=== PATIENT | female | born 1965 | race Caucasian/White ===

== ENCOUNTER 2017-02-01 13:27 | Inpatient (IN) | payer OTHER ==
--- NOTE | ~2017-02-01 | A ---
[facility] Nutrition Therapy DATE: 02/02/17 Patient: FLORIDA NARVAEZ Physician: OSBALDO Address: [address] [place] [address] ROAD Room/Bed: [address] [place] [address], Zip: [place] [address] Admit Date: 02/01/17 Date of : [birth year] Height: 5 4 Weight: 63 29 NUTRITIONAL ASSESSMENT: REASON: Low BMI Admitting Dx: 51 y/o female admitted with AMS, possible seizure. COPD exacerbation, PNA PMH: COPD, smoker, questionable ETOH/substance abuse Anthropometrics: Ht: 64", Wt: 104 lbs, BMI: 18 (underweight) *Wt documented today of 63 lbs is incorrect! Labs: Mg 1.5 Meds: PPI, Kcl, Nacl, MgSO4, Keppra, Solu-medrol, Zofran prn I/O & Bowel function: LBM 02/01 Skin Integrity: Intact abrasion L foot, bruise x 2, no edema Assessment: Chart reviewed, events noted. See admitting dx and PMH as stated above. Tox screen + marijuana, ?ETOH/substance abuse. CT of head showed nothing acute, CXR showed community acquired pnemonia, patient is on 2L nasal cannula. RD assessing due to underweight status- past weight of 115 lbs on 04/24/15 reflects a possible gradual weight loss of 11 lbs in almost 2 years (9.6% loss; mild), if weights are accurate. The patient passed a bedside swallow for a regular diet, however she is not appropriate for RD interview at this time as she has been cursing at staff and refusing care, is on a [address] RD recs, will follow hospital course and interview to obtain weight and diet hx if she becomes appropriate. Dx: Underweight r/t unknown etiology AEB BMI 18, 87% IBW. Intervention: Ensure BID if PO is < 50% Monitoring, Evaluation and Goals: 1. PO intake > 50% of meals. 2. Gradual weight gain towards a healthy BMI range. Monitor: Per protocol, criteria to determine if above goals met Recommendations: 1. Continue regular diet, encourage frequent meals/snacks. [facility] Nutrition Therapy DATE: 02/02/17 Patient: FLORIDA NARVAEZ Physician: OSBALDO Address: [address] [place] [address] ROAD Room/Bed: [address] [place] [address], Zip: [place] [address] Admit Date: 02/01/17 Date of : [birth year] Height: 5 4 Weight: 63 29 2. If PO intake is < 50% of meals please order Ensure Enlive BID, if patient will comply. 3. Please weigh q 3 days for monitoring purposes, as the patient is clinically underweight. RD will follow Mild-moderate nutrition risk Respectfully, Elsa Childress RD, LD Food and Nutritional Services [facility] cc: client file
--- NOTE | ~2017-02-01 | CT71 ---
[facility] A Service of [facility] & [facility] RADIOLOGY TEXT RESULTS PATIENT: FLORIDA NARVAEZ LOCATION: [facility] 555-01 : [birth year] UNIT #: [id number] AGE: [address]: Dev Roman MD SEX: F ORDER DR: [id number] [facility] [address] [place], [place] [address] [id number] E MR#: [id number] Acc #: [id number] NAME: FLORIDA NARVAEZ : 1965 SEX: F STUDY DATE/TIME: 02/01/2017 12:01 UNIT: [facility] ROOM: STUDY DESCRIPTION: CT Head Wo Contrast Attending Physician: Narciso Negron D.O. Referring Physician: Primary Care Physician No Ordering Physician: Narciso Negron D.O. Primary Care Physician: Primary Care Physician No MEDICAL IMAGING REPORT This report is preliminary unless electronic signature is present EXAM CT head, 02/01/2017 HISTORY Confused today. Patient states jerking in body today. History of asthma and COPD. Jerking in body today. TECHNIQUE This CT exam was performed with one or more of the following radiation dose reduction techniques: automatic exposure control, adjustment of mA and/or kV according to patient size, and iterative reconstruction. FINDINGS CT head performed skull base through vertex without intravenous contrast. Comparison 07/13/2016. Study degraded by streak/motion artifact. Brainstem unremarkable. Cerebellum and cerebral hemispheres show normal whaley matter-white matter differentiation. No hemorrhage. No evidence of acute cortical ischemia. The midline structures are nondisplaced and the basal ganglia are intact. The ventricles, cisterns and sulci are normal in size and contour. No intra or extraaxial mass effect or abnormal intracranial fluid collection. The intraorbital soft tissues are remarkable. Mucosal thickening in the ethmoid air cells and bilateral maxillary sinuses significantly less pronounced than on the prior study. No fracture. IMPRESSION 1. Motion degraded study. If patient has ongoing neurologic symptoms, consider followup examination. 2. No acute abnormality is seen in the brain. 3. Mucosal thickening in ethmoid air cells and maxillary sinuses. Significantly less pronounced than on prior examination. [facility] A Service of [facility] & [facility] RADIOLOGY TEXT RESULTS PATIENT: FLORIDA NARVAEZ LOCATION: [facility] 555-01 : [birth year] UNIT #: [id number] AGE: [address]: Dev Roman MD SEX: F ORDER DR: Dictated by... Vinnie Ontiveros M.D. THIS IS AN ELECTRONICALLY VERIFIED REPORT Vinnie Ontiveros M.D. at 02/02/2017 6:04 PM Alan TD: 02/01/2017 14:47 JOB #: [id number] MEDICAL IMAGING REPORT Page 1 of 1 COPY
--- NOTE | ~2017-02-01 | DS ---
Unit #: [id number] #: [id number] Patient: FLORIDA NARVAEZ [id number] [address] [address] [id number] I MR#: [id number] NAME: FLORIDA NARVAEZ ROOM: 555 Age: 51 Sex: F Admission Date: 02/01/2017 : 1965 Discharge Date: 02/02/2017 Attending Physician: Dev Roman M.D. Referring Physician: Primary Care Physician No Primary Care Physician: Primary Care Physician No DISCHARGE SUMMARY DISCHARGE DIAGNOSES 1. Drug-induced encephalopathy. 2. Chronic obstructive pulmonary disease exacerbation. 3. Possible pneumonia. 4. Drug abuse. 5. Seizure. HOSPITAL COURSE The patient is a 51-year-old female who was being brought to EMS after she was noted to be altered. Apparently, the EMS was called by the boyfriend. There was some question of a witnessed seizure. The patient received Keppra, Vimpat,and Ativan for her seizure. No further seizure activity was noted. She did, however, become extremely agitated on the night prior to discharge and was ultimately treated with Geodon and restraints. On the day of discharge, the patient was much calmer. Her restraints were canceled. The patient was evaluated by Psychiatry and it was felt that 72-hour hold was not needed (72-hour hold had been started the night prior when the patient was agitated). As a result, a 72-hour hold was canceled and the patient then did request discharge. Having been deemed not a threat to herself or others and given her request to no longer have treatment and be discharged, the patient was indeed discharged home. She was just interested in receiving treatment for any maladies. This includes seizure medication and treatment for pneumonia and COPD. It is felt however that ongoing treatment for seizures was not needed and the seizure was likely caused by some drug of abuse that is undetectable on urine drug screen. DISCHARGE MEDICATIONS Ventolin which is her only home medication. FOLLOWUP The patient should follow up with her primary care provider at the earliest available appointment. Dictated by... Dev Roman M.D. CAM/modl Unit #: [id number] #: [id number] Patient: FLORIDA NARVAEZ TD: 02/07/2017 02:14 JOB #: [id number] DISCHARGE SUMMARY Page 1 of 1 X Dev Roman MD DISCHARGE SUMMARY
--- NOTE | ~2017-02-01 | HP ---
Unit #: [id number] #: [id number] Patient: FLORIDA NARVAEZ [id number] [facility] [address] [place], [place] [address] [id number] E MR#: [id number] NAME: FLORIDA NARVAEZ ROOM: Age: 51 Sex: F Admission Date: 02/01/2017 : 1965 Attending Physician: Narciso Negron D.O. Referring Physician: No Primary Care Physician Primary Care Physician: No Primary Care Physician HISTORY AND PHYSICAL CHIEF COMPLAINT Altered mental status. HISTORY OF PRESENT ILLNESS The patient is a 51-year-old female with a past medical history of chronic obstructive pulmonary disease. She presented to the emergency department via EMS for evaluation of the above. History is obtained from chart review and discussion with the emergency room staff due to the patient being unable to provide history. It is unclear when the patient was last normal. As stated above, EMS was called for altered mental status. During the course of her evaluation there was a boyfriend who apparently was at the bedside, who stated that the patient walked into the bathroom this morning and fell. She appeared to have seizure-like activity with "eyes rolled back and shaking all over." She has apparently never had seizures nor taken any antiepileptic medications in the past. The significant other stated that she was previously taking unprescribed "pain medication," but stopped taking that about a month ago. The pharmacy was apparently called. The patient is not currently receiving any narcotics or benzodiazepines. In the emergency department the patient's pulse and blood pressure were 97 and 130/89 respectively. Oxygen saturation 93% on room air. She was noted to be having some "twitching." A CT of the head was done and showed nothing acute. She was given a gram of Keppra as well as 100 mg of Vimpat. She also prior to that received 1 mg of Ativan. She is no longer twitching. Also of note, chest x-ray showed bibasilar infiltrate. She was given Rocephin and azithromycin in the emergency department. She is being admitted to [facility] for evaluation and further treatment. Also of note, the patient's tox screen was positive for marijuana. PAST MEDICAL HISTORY Chronic obstructive pulmonary disease. PAST SURGICAL HISTORY 1. Hysterectomy. 2. Tonsillectomy. SOCIAL HISTORY The patient is a smoker. She has a history of taking "pain medication that is now prescribed," per the patient's significant other. FAMILY HISTORY Unit #: [id number] #: [id number] Patient: FLORIDA NARVAEZ Currently unobtainable. ALLERGIES No known drug allergies. HOME MEDICATIONS Ventolin inhaled daily. REVIEW OF SYSTEMS A complete review of systems is unobtainable due to the patient's current altered mental status. Apparently prior to Ativan, Keppra and Vimpat, the patient was alert and oriented times three. PHYSICAL EXAMINATION GENERAL: The patient is a female who is lethargic, but opens eyes to sternal rub. VITALS: Temperature 97.8, pulse 97, respiratory rate 35, blood pressure 130/89, oxygen saturation 93% on room air. HEENT: The head is atraumatic. Mucous membranes are moist. NECK: Supple. Trachea midline. LUNGS: Few scattered wheezes and rhonchi. Breathing is not labored. HEART: Regular rate and rhythm. ABDOMEN: Soft and nontender with bowel sounds present in all four quadrants. EXTREMITIES: Nontender with no pedal edema. NEUROLOGIC: The patient is lethargic, but awakens to sternal rub. She is moving all extremities. She was apparently alert and oriented times three prior to receiving Ativan, Keppra and Vimpat. PSYCHIATRIC: Unable to assess. SKIN: Skin of examined areas is warm and dry. DIAGNOSTIC STUDIES IMAGING: Chest x-ray shows patchy bibasilar infiltrates. CT of the head shows nothing acute. LABORATORY: Troponin less than 0.05. Complete blood count is notable for platelets of 102. Rapid flu screen is negative. INR is 1.1. Ammonia level is 14. CMP is notable for potassium 2.8, glucose 155, albumin 3.4, Tylenol, salicylate and alcohol levels are negative. Lactic acid is 2.3. BNP is 32. Urine tox screen positive for marijuana. Urinalysis notable for 1+ protein. CARDIOVASCULAR: EKG shows normal sinus rhythm with a rate of 96 beats per minute. ASSESSMENT The patient is a 51-year-old female with 1. Altered mental status. 2. Possible seizure. The patient received Keppra and Vimpat in the emergency department. 3. Pneumonia, community acquired. The patient received Rocephin and azithromycin in the emergency department. 4. Sepsis with initial lactic acid of 2.3. 5. Hypokalemia. The patient received 40 mEq of potassium in the emergency department. 6. Chronic obstructive pulmonary disease exacerbation. The patient received 125 mg of Solu-Medrol in the emergency department. Unit #: [id number] #: [id number] Patient: FLORIDA NARVAEZ 7. Thrombocytopenia. The patient's platelet count is 102, with no baseline for comparison. 8. Tobacco abuse. PLAN 1. Admit to intermediate level. 2. N.p.o. until awake and passes bedside swallow. 3. Normal saline at 125 mL an hour. 4. Bedrest. 5. Seizure precautions. 6. TSH, B12 and folate. 7. Neurologic checks. 8. Keppra 1 g IV q.12 h. 9. Vimpat 100 mg IV q.12 h. 10. MRI of the brain, seizure protocol. 11. EEG. 12. Consult Dr. Chapman regarding possible seizure. 13. Blood cultures. 14. Sputum culture and sensitivity. 15. Procalcitonin level. 16. Supplemental oxygen. 17. Rocephin and azithromycin for community acquired pneumonia pending further workup. 18. Duo-Nebs q.4 h. 19. Solu-Medrol 80 mg IV q.12 h. 20. Sepsis protocol with repeat lactic acid. 21. Serial cardiac enzymes. 22. Check magnesium level. 23. Potassium/magnesium protocol. 24. Repeat labs in the morning. 25. SCDs for DVT prophylaxis. 26. Protonix for GI prophylaxis since the patient will be on Solu-Medrol. 27. Additional workup and consultants based on the above. Dictated by Bipin Toledo TD: 02/01/2017 14:49 JOB #: [id number] HISTORY AND PHYSICAL Page 1 of 1 X Alanna Johnson MD X HISTORY AND PHYSICAL
--- NOTE | ~2017-02-01 | CR72 ---
[facility] A Service of [facility] & [facility] RADIOLOGY TEXT RESULTS PATIENT: FLORIDA NARVAEZ LOCATION: [facility] : [birth year] UNIT #: [id number] AGE: [address]: Narciso Negron DO SEX: F ORDER DR: [id number] [facility] [address] [place], [place] [address] [id number] E MR#: [id number] #: [id number] NAME: FLORIDA NARVAEZ : 1965 SEX: F STUDY DATE/TIME: 02/01/2017 11:24 UNIT: [facility] ROOM: STUDY DESCRIPTION: CR Chest Single View Portable Attending Physician: Narciso Negron D.O. Referring Physician: Primary Care Physician No Ordering Physician: Narciso Negron D.O. Primary Care Physician: Primary Care Physician No MEDICAL IMAGING REPORT This report is preliminary unless electronic signature is present EXAM Portable chest radiograph INDICATION Shortness of breath and cough. This has been present for 2 days. COMPARISON January 14, 2017 FINDINGS The heart size is within normal limits. Patient does appear to have patchy bibasilar infiltrates and potentially also some milder infiltrates within the upper lobes bilaterally. This certainly could reflect multifocal pneumonia. Short-term followup examination to document resolution is recommended. No pneumothorax or pleural effusion. Dictated by... Erin Natarajan M.D. THIS IS AN ELECTRONICALLY VERIFIED REPORT Erin Natarajan M.D. at 02/01/2017 4:45 PM AFF/jw TD: 02/01/2017 14:41 JOB #: [id number] MEDICAL IMAGING REPORT Page 1 of 1 COPY
--- NOTE | ~2017-02-01 | EKG ---
PATIENT: FLORIDA NARVAEZ UNIT #: [id number] Ventricular Rate: 96 BPM Atrial Rate: 96 BPM P-R Interval: 132 ms QRS Duration: 84 ms Q-T Interval: 372 ms QTC Calculation(Bezet): 469 ms P Duff: 74 degrees Calculated R Duff: 74 degrees Calculated T Duff: 40 degrees Diagnosis Line: Normal sinus rhythm Diagnosis Line: Nonspecific T wave abnormality Diagnosis Line: Prolonged QT Baseline wander Diagnosis Line: Abnormal ECG Diagnosis Line: No previous ECGs available Diagnosis Line: Confirmed by LARY BROOKS MD ([id number]) on 02/01/2017 Diagnosis Line: 11:05:39 PM INTERPRETING MD: TODD ORR
--- NOTE | ~2017-02-01 | CO ---
Unit #: [id number] #: [id number] Patient: FLORIDA NARVAEZ [id number] [facility] [address] [place], [place] [address] [id number] I MR#: [id number] NAME: FLORIDA NARVAEZ ROOM: 555 Age: 51 Sex: F Admission Date: 02/01/2017 : 1965 Attending Physician: Dev Roman M.D. Primary Care Physician: Primary Care Physician No Consultation Date: 02/02/2017 CONSULTATION REPORT REASON FOR CONSULTATION Mental status changes. PATIENT IDENTIFICATION This is a 51-year-old white female, who was evaluated in room 555 at [facility]. SOURCE OF INFORMATION Essentially the medical records. The patient is now on four point restraints. She does not want to communicate, talk, or interact in anyway. PROBLEM LIST Essentially, a COPD and she has had hysterectomy and tonsillectomy. ADMISSION DIAGNOSES 1. Altered mental status. 2. Possible seizure. 3. Possible pneumonia. 4. Possibility of sepsis. 5. Hypokalemia. 6. Chronic obstructive pulmonary disease and she has been on steroid. 7. Thrombocytopenia. 8. Tobacco abuse. HISTORY OF PRESENT ILLNESS This is a 51-year-old female, who is actually brought in yesterday. She was brought in with altered mental status. Apparently is unclear when she was last normal. EMS was called for altered mental status. During the course of her evaluation, it was reported that the patient went to the bathroom and fell. There appeared to be seizure-like activity, shaking all over. She never had history of seizures. She has been confused last night. She got more agitated, had to be on four-point restraints. No seizures have been reported since then. When I came to see her and I tried to talk with her, she would not talk to me and whenever I try to stimulate her again and again by asking questions, she told me to leave her alone. She was very focused and she is moving all extremities despite being in restraints. I did not see any facial asymmetry. I do not see any twitching or any other activity. Yesterday, there was concern about some myoclonic type activity and really the labs did not show anything. She had marijuana positive otherwise no other abnormalities. No significant white count. No fever. Her platelets were Unit #: [id number] #: [id number] Patient: FLORIDA NARVAEZ. Urinalysis showed nothing major. There was some protein, but nothing major. CT head was okay. EEG has not been done. So the concern is that, was this some sort of withdrawal or sepsis or intoxication. She does not look like meningitis type picture. She does not have significant white count, otherwise neck stiffness and other possibility is some sort of substance that she may have taken or is withdrawing from which is correctly obviously not seen on the drug screen. She looks like otherwise nonfocal, but cognitive evaluation is very difficult. EEG is pending. She is being treated with antibiotics and others. No family available to me to give further information. PAST MEDICAL HISTORY As discussed above. PAST SURGICAL HISTORY As discussed above. ALLERGIES None. HOME MEDICATIONS Apparently Ventolin. FAMILY HISTORY Details unavailable. SOCIAL HISTORY Apparently, there is a boyfriend with her. She is a smoker. She has history of taking pain medication. Boyfriend reported to the staff that they were prescribed now to her. Drug screen was negative. REVIEW OF SYSTEMS Really could not be obtained because of her present state. PHYSICAL EXAMINATION She is arousable. She is moving. She is appropriate and saying negative things. VITAL SIGNS: Temperature 98.4, pulse is 111, respirations are 22, blood pressure 155/24, O2 sats of 97% to 98%. Weight of 104 pounds. BMI was 18. NEUROLOGIC: The patient is in four point restraints, very belligerent since last night. She is focused. She told me to leave her alone. She does not want to interact. Cranial nerve examination, she would not open her eyes for me to do field evaluation even check her pupils or do a funduscopic examination, but whenever she briefly opens her eyes, they seemed conjugate. I did not see any facial asymmetry. I could not check muscle of mastication. Hearing seemed to be intact when she responds to stimuli. Her tongue seemed to midline. I could not visualize oropharynx or uvula. Head turning was spontaneous and equal. No spasticity type activity was seen. Motor examination, she is withdrawing forcefully. She is trying to pull on the restraints. Strength is at least 4+ to 5- all over. I did not see any decreased tone or asymmetry or posturing. Unit #: [id number] #: [id number] Patient: FLORIDA NARVAEZ Sensory examination responds to soft touch and even pain and withdraws forcefully. I could not get any reflexes. Toes are mute. Gait and coordination could not be evaluated. DIAGNOSTIC STUDIES Labs and imaging studies reviewed. EEG not available. IMPRESSION This is a 51-year-old female, who was actually brought in with decreased level of consciousness and confusion. There is question about seizure. The question I have is she going through some sort of withdrawal or this is intoxication. There is nothing suggesting that she has meningitis type picture. I will discontinue Keppra since epilepsy has not been established. Wait for her EEG. Continue supportive care and see how things go. Further treatment will be based on our findings and if needed MRI, LP, and further testing would be done. At present, it does not look like she has history of epilepsy or status epilepticus. Again I cannot otherwise say what she took or did not take or is withdrawing from. Also it does not look like she has a major stroke. It does not look like she is meningitis either, but that is in the part of the differential diagnosis and I will watch her very closely. At present, it is very unlikely that she would lay still for LP and I really do not want to sedate her necessitating possibility of intubation considering that she may have pneumonia and sepsis and that may be cause for it or she may have decreased level of consciousness and aspirated. So we will follow closely with the primary team and see how things go. I will keep you informed. Call me for any other questions, issues, or concerns. Dictated by... Bipin Wyatt/edgardo TD: 02/03/2017 02:29 JOB #: [id number] CONSULTATION REPORT Page 1 of 1 X Darya Chapman MD X CONSULTATION REPORT
[2017-02-01 11:35] LABS: POC - CKMB 1.3 ng/mL (0.0-7.9); POC - TROPONIN <0.05 ng/mL (<=0.05)
[2017-02-01 11:38] LABS: BASOPHIL% 0.6 % (0-2.5); DIFF IND NO; EOSINOPHIL# 0.2 X10e3 (0-0.7); EOSINOPHIL% 2.7 % (0.0-7.0); HEMATOCRIT 42.7 % (35.0-45.0); HEMOGLOBIN 13.8 gm/dL (12.0-16.0); LYMPHOCYTE% 18.2 % (17.0-45.0); MEAN CELL VOLUME 95.9 FL (83-96); MEAN CORPUSCULAR HEMOGLOBIN 30.9 PG (28-34); MEAN CORPUSCULAR HGB CONC 32.2 g/dL (30-36); MEAN PLATELET VOLUME 8.5 FL (6.5-11.5); MONOCYTE# 0.5 X10e3 (0-1.0); NEUTROPHIL% 70.5 % (40-75); PLATELET COUNT 102 X10e3 (140-420); RED BLOOD COUNT 4.45 X10e (3.90-5.30); RED CELL DISTRIBUTION WIDTH 20.6 % (11.0-15.5); WHITE BLOOD COUNT 5.7 X10e3 (4.0-10.5)
[2017-02-01 11:47] LABS: INFLUENZA A NEG (NEG); INFLUENZA B NEG (NEG); INR 1.1; PARTIAL THROMBOPLASTIN TIME 22.9 SECONDS (23.5-31.3); PROTHROMBIN TIME (PATIENT) 11.2 SECONDS (9.6-11.5)
[2017-02-01 12:01] LABS: URINE SOURCE CLEAN CATCH
[2017-02-01 12:07] LABS: ALBUMIN SERUM 3.4 g/dL (3.5-5.0); ALKALINE PHOSPHATASE 75 U/L (32-92); ALT (SGPT) 26 U/L (10-40); AST (SGOT) 30 U/L (10-42); BILIRUBIN, DIRECT 0.1 mg/dL (0.0-0.2); BILIRUBIN,INDIRECT 0.7 mg/dL (0.0-0.9); BILIRUBIN,TOTAL 0.8 mg/dL (0.2-2.0); BLOOD UREA NITROGEN 6 mg/dL (9-23); CALCIUM SERUM 8.6 mg/dL (8.4-10.2); CARBON DIOXIDE 28 mmol/L (22-31); CHLORIDE 105 mmol/L (100-111); CREATININE SERUM 0.6 mg/dL (0.6-1.4); GLUCOSE FASTING 155 mg/dL (70-110); PROTEIN TOTAL SERUM 6.5 g/dL (6.0-8.3); SALICYLATE <4.0 mg/dL; SODIUM 142 mmol/L (135-145)
[2017-02-01 12:09] LABS: ACETAMINOPHEN <10 ug/mL; ALCOHOL BLOOD <5 mg/dL (0); POTASSIUM 2.8 mmol/L (3.5-5.1)
[2017-02-01 12:10] LABS: URBCS1 AUWI 0-2 /[HPF] (0-2); URINE APPEARANCE CLOUDY; URINE BACTERIA AUWI NEG (NEGATIVE); URINE BILIRUBIN NEG (NEG); URINE BLOOD NEG (NEG); URINE COLOR YELLOW; URINE GLUCOSE NEG (NEG); URINE KETONE NEG (NEG); URINE LEUKOCYTE ESTERASE NEG (NEG); URINE NITRATE NEG (NEG); URINE PROTEIN 1+ (NEG); URINE SPECIFIC GRAVITY 1.015 (1.003-1.035); URINE SQUAMOUS EPITHELIAL CELL OCC /[HPF]; UWBCS1 AUWI 0-2 (0-5)
[2017-02-01 12:17] LABS: AMPHETAMINE NEG (NEG); BARBITURATES NEG (NEG); BENZODIAZEPINES NEG (NEG); COCAINE NEG (NEG); MARIJUANA POS (NEG); OPIATES NEG (NEG); TRICYCLIC ANTIDEPRESSANTS NEG (NEG); U METHADONE NEG (NEG)
[2017-02-01 12:29] LABS: CULTURE INDICATED? NO
[~2017-02-01 13:27] MED LIST: ALBUTEROL17 GM INH; FLEXERIL10 MG PO; MOTRIN; TYLENOL #3 PO; VOLTAREN50 MG PO
[2017-02-01 13:38] LABS: POC - CKMB 1.3 ng/mL (0.0-7.9); POC - TROPONIN <0.05 ng/mL (<=0.05)
[2017-02-01 15:30] LABS: MAGNESIUM 1.6 mg/dL (1.6-3.0)
[2017-02-01 15:59] LABS: FOLATE (FOLIC ACID) 15.6 ng/mL (>5.8)
[2017-02-01 16:01] LABS: PROCALCITONIN <0.05 NG/ML
[2017-02-02 11:30] LABS: HEMATOCRIT 36.2 % (35.0-45.0); MEAN CELL VOLUME 96.6 FL (83-96); MEAN CORPUSCULAR HEMOGLOBIN 31.4 PG (28-34); MEAN CORPUSCULAR HGB CONC 32.5 g/dL (30-36); MEAN PLATELET VOLUME 8.4 FL (6.5-11.5); RED BLOOD COUNT 3.75 X10e (3.90-5.30); RED CELL DISTRIBUTION WIDTH 20.2 % (11.0-15.5); WHITE BLOOD COUNT 7.2 X10e3 (4.0-10.5)
[2017-02-02 12:06] LABS: ALBUMIN SERUM 2.9 g/dL (3.5-5.0); BILIRUBIN,TOTAL 0.6 mg/dL (0.2-2.0); CALCIUM SERUM 8.3 mg/dL (8.4-10.2); CREATININE SERUM 0.5 mg/dL (0.6-1.4); GLOM FILT RATE Estimated 113.7 mL/min (>60); MAGNESIUM 1.5 mg/dL (1.6-3.0); POTASSIUM 3.5 mmol/L (3.5-5.1); PROTEIN TOTAL SERUM 5.4 g/dL (6.0-8.3)
[2017-02-02 12:50] LABS: HEMOGLOBIN 11.8 gm/dL (12.0-16.0)
[2017-02-04 09:04] LABS: HA AB IGM (HEPPAN) Nonreactive (Nonreactive); HB CORE AB IGM (HEPPAN) Nonreactive (Nonreactive); HB S AG (HEPPAN) Reactive (Nonreactive); HEP C AB (HEPPAN) Nonreactive (Nonreactive); HEP C AB SIGNAL TO CUTOFF 0.13 ratio (<1.00)
== END 2017-02-02 17:19 | disposition home or self-care (01) | DRG 91 ==
LOC: CED 13:27 → C5B 14:15
PROVIDERS: Emergency Medicine; Family Medicine; Internal Medicine
DX: G92 Toxic encephalopathy (principal); J18.9 Pneumonia, unspecified organism; A41.9 Sepsis, unspecified organism; R56.9 Unspecified convulsions; D69.6 Thrombocytopenia, unspecified; J44.1 Chronic obstructive pulmonary disease with (acute) exacerbation; E87.6 Hypokalemia; F17.210 Nicotine dependence, cigarettes, uncomplicated; Z90.710 Acquired absence of both cervix and uterus; F19.10 Other psychoactive substance abuse, uncomplicated
CPT/HCPCS: 36415; 51702; 70450; 71010; 80048; 80053; 80074; 80076; 80307; 81003; 82140; 82308; 82553; 82607; 82746; 82947; 83605; 83735; 83880; 84443; 84484; 85025; 85027; 85610; 85730; 87040; 87804; 87806; 93005; 94640; 94760; 96361; 96374; 96375; 99285; C9113; C9254; G0480; J0456; J0696; J1953; J2060; J2920; J2930; J3475; J3486

== ENCOUNTER 2017-04-10 12:56 | Emergency (ER) | payer OTHER ==
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
== END 2017-04-10 17:27 | disposition home or self-care (01) ==
LOC: CED 12:56
DX: S33.5XXA Sprain of ligaments of lumbar spine, initial encounter (principal); S76.012A Strain of muscle, fascia and tendon of left hip, initial encounter; J44.9 Chronic obstructive pulmonary disease, unspecified; Z90.710 Acquired absence of both cervix and uterus; V49.00XA Driver injured in collision with unspecified motor vehicles in nontraffic accident, initial encounter
CPT/HCPCS: 72100; 73502; 99284